=== PATIENT | female | born 1975 | race African-American/Black ===

== ENCOUNTER → 2022-02-04 | Day surgery (SDC) | payer MEDICARE, MEDICAID ==
[2022-02-02 14:17] VITALS: BMI 28.3
== END ==
LOC: SDC 08:24
PROVIDERS: ATTEND Internal Medicine Gastroenterology
DX: R14.0 Abdominal distension (gaseous) (principal); K59.00 Constipation, unspecified; Z53.8 Procedure and treatment not carried out for other reasons; Z79.899 Other long term (current) drug therapy

== ENCOUNTER 2022-04-08 07:02 | Day surgery (SDC) | payer MEDICARE, MEDICAID ==
[2022-04-07 09:05] VITALS: BMI 29.7
[2022-04-08] MEDS ORDERED: Lidocaine 1% PF 5 ML VIAL ONE (09:06)
[2022-04-08] MEDS ORDERED: PROPOFOL 200 MG/20 ML VIAL ONE (09:06)
== END 2022-04-08 11:09 | disposition home or self-care (01) ==
LOC: SDC 07:02
PROVIDERS: ATTEND Internal Medicine Gastroenterology
PROC: 0DJD8ZZ Inspection of Lower Intestinal Tract, Via Natural or Artificial Opening Endoscopic (ICD-10-PCS; principal; 2022-04-08)
DX: Z12.11 Encounter for screening for malignant neoplasm of colon (principal); K63.89 Other specified diseases of intestine; Q43.8 Other specified congenital malformations of intestine; G80.9 Cerebral palsy, unspecified; K59.00 Constipation, unspecified; Z79.899 Other long term (current) drug therapy
CPT/HCPCS: J2704

== ENCOUNTER 2022-10-21 05:46 | Day surgery (SDC) | payer MEDICARE, MEDICAID ==
[2022-10-20 09:34] VITALS: BMI 29.8
[2022-10-21] MEDS ORDERED: PROPOFOL 200 MG/20 ML VIAL ONE (08:15)
[2022-10-21] MEDS ORDERED: Ondansetron PF 4 MG/2 ML Vial ONE (08:15)
[2022-10-21] MEDS ORDERED: Lidocaine 1% PF 5 ML VIAL ONE (08:15)
== END 2022-10-21 09:39 | disposition home or self-care (01) ==
LOC: SDC 05:46
PROVIDERS: ATTEND Internal Medicine Gastroenterology
PROC: 0DJ08ZZ Inspection of Upper Intestinal Tract, Via Natural or Artificial Opening Endoscopic (ICD-10-PCS; principal; 2022-10-21)
DX: R13.12 Dysphagia, oropharyngeal phase (principal); R93.3 Abnormal findings on diagnostic imaging of other parts of digestive tract; R06.2 Wheezing; F84.0 Autistic disorder; G80.0 Spastic quadriplegic cerebral palsy; Z79.84 Long term (current) use of oral hypoglycemic drugs; Z79.899 Other long term (current) drug therapy
CPT/HCPCS: J2405; J2704